=== PATIENT | male | born 2000 | race Caucasian/White ===

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

== ENCOUNTER → 2020-06-07 | Outpatient (CLI) | payer BC, SELFPAY ==
[2020-06-07 11:57] VITALS: BMI 27.0
== END | disposition home or self-care (01) ==
LOC: LABSPEC 15:19
PROVIDERS: PCP Pediatrics; Referring Provider Physician Assistant Surgical; Visit Provider Physician Assistant Surgical
DX: Z20.822 Contact with and (suspected) exposure to COVID-19 (principal)
CPT/HCPCS: 87635; U0003

== ENCOUNTER 2021-02-08 14:14 | Emergency (ER) | payer BC, SELFPAY ==
[2021-02-08 14:14] VITALS: BP 130/90; PULSE 71; RESP 16; TEMP 35.7; O2SAT 100; BMI 26.6
[2021-02-08 14:39] VITALS: BP 146/87; PULSE 70; RESP 14; O2SAT 98
--- NOTE | 2021-02-08 14:57 | EKG12_ITS ---
Test Reason : CP Blood Pressure : / mmHG Vent. Rate : 069 BPM Atrial Rate : 069 BPM P-R Int : 160 ms QRS Dur : 098 ms QT Int : 366 ms P-R-T Axes : 046 051 044 degrees QTc Int : 392 ms Normal sinus rhythm Normal ECG Confirmed by ALEIDA POPE, LETI ([id number]), associate editor LIU MASTERSON ([id number]) on 02/10/2021 1:17:02 PM Referred By: ALICIA/LUIGI Confirmed By:NANCIE SHIN MD
--- NOTE | 2021-02-08 14:58 | EDS_ITS ---
HPI History of Present Illness Chief Complaint: Chest Pain Informant: patient Onset/Context/Timing Onset: Yesterday Activity at onset: sudden Timing: Continuous Quality: Positive for Dull Location: Right Parasternal Worsened By: Exertion Relieved By: Rest and Remaining Still Associated Symptoms: Negative for Nausea, Vomiting, Diaphoresis, Dyspnea, Cough, Fever, Lightheadedness, Acid Reflux and Palpitations Narrative Narrative: Patient presents with chest pain that began yesterday evening. Patient states it has been constant. Patient describes the pain as dull. Patient states it is over the right parasternal area. Patient states it is worse with exertion and better when laying flat. Patient denies any nausea or vomiting. Patient denies any diaphoresis. Patient denies any cough, fever, or shortness of breath. Patient denies any palpitations. Patient denies any cardiac or PE risk factors. CVD Risk Factors: Negative for Hypertension, Diabetes, Hypercholesterolemia, Family History 1' </=55 and Smoking PE Risk Factors: Negative for Recent Travel/Surgery, Recent Immobilization, Prior DVT or PE, Cancer and OCP + Smoking + >/=35 PFSH PFSH Medical History (Updated 02/08/21 @ 18:[address] Mike Ferris DO) ACL tear Asthma Pyloric stenosis Pyloric stenosis Allergy/AdvReac Type Severity Reaction Status Date / Time omeprazole [From Prilosec] Allergy throat Verified 02/08/21 14:16 swells ENVIRONMENTAL Allergy Swelling Uncoded 02/08/21 14:16 Surgical History (Updated 02/08/21 @ 15:[address] Mike Ferris DO) History of cholecystectomy History of repair of pyloric stenosis History of tonsillectomy History of tonsillectomy Hx of tympanostomy tubes Social History Smoking Status: Never smoker ROS ROS ED Constitutional Constitutional ED: Denies chills or fever(s) Eyes Eyes: Denies blurry vision or change in vision ENT ENT ED: Denies rhinorrhea or sore throat Cardiovascular Cardiovascular: Reports chest pain; Denies palpitations Respiratory/Chest Respiratory/Chest: Reports dyspnea; Denies cough Gastrointestinal Gastrointestinal: Reports nausea; Denies abdominal pain or vomiting Genitourinary Genitourinary ED: Denies dysuria or hematuria Musculoskeletal Musculoskeletal: Denies back pain or neck pain Integumentary Denies abscess or rash Neurologic Neurologic: Denies headache(s) or weakness Allergic/Immunologic Allergic/Immunologic ED: Denies mouth swelling or urticaria EXAM Physical Exam Const Vital Signs: 02/08/21 14:14 02/08/21 14:39 02/08/21 15:05 Temperature 96.2 F L Temperature Source Temporal Pulse Rate 71 70 Respiratory Rate 16 14 Respiratory Effort Normal Blood Pressure 130/90 H 146/87 H Blood Pressure Mean 103 106 Pulse Ox 100 98 99 Oxygen Delivery Method Room Air Room Air Room Air 02/08/21 16:50 02/08/21 18:29 Temperature Temperature Source Pulse Rate 79 69 Respiratory Rate 19 H 19 H Respiratory Effort Blood Pressure 131/80 H 127/79 H Blood Pressure Mean 97 95 Pulse Ox 97 97 Oxygen Delivery Method Room Air Room Air Positive well nourished and well developed General Appearance ED: well developed HEENT normocephalic and atraumatic Eyes PERRL and EOMs intact bilaterally Neck supple and no JVD Chest Wall Chest: tenderness costal cartilage right Resp normal respiratory effort and clear to auscultation bilaterally Effort and Inspection: Negative for respiratory distress Cardio regular rate, regular rhythm and no murmurs GI normal to inspection, nondistended, normoactive bowel sounds, soft to palpation, non-tender and non-distended Extremity normal to inspection General Extremety ED: Negative for edema or tenderness General Extremity: Negative for edema Neuro oriented x3, CN's II-XII intact bilaterally and no sensory deficits noted Sensorium / Orientation: awake and alert Motor Exam: strength 5/5 throughout Psych mental status grossly normal Heart Score History: Slightly/Non-Suspicious ECG: Normal Age: </= 45 years Risk Factors: No Risk Factors Troponin: </= Normal Limit Score: 0 MDM MDM MDM Narrative Medical decision making narrative: EKG was obtained. On my interpretation, it showed a normal sinus rhythm with a rate of 69. FL interval, QRS interval, and QTc intervals were all normal. [place] was normal. There are no acute ST or T wave changes. Portable 1 view chest x-ray was obtained. On my interpretation, lung kent are clear. There is normal cardiac silhouette. Bony thorax is normal. There is no acute process noted. Radiologist also interpreted the x- ray and agrees. CBC and basic metabolic profile were obtained and were within normal limits. Initial high-sensitivity troponin was normal. D-dimer was elevated at 0.51. Because of this, CTA of the chest was ordered. There is no evidence of pulmonary embolism. 2-hour repeat high-sensitivity troponin was normal. Patient has a HEART score of 0. Patient was advised that this is low risk for acute cardiac event. Patient was instructed to follow-up with his primary care physician in 5 to 7 days. Patient was instructed to take Tylenol or ibuprofen as needed for pain. Patient and family understood and were agreeable with the plan. All questions were answered. Lab Data Attestation: I reviewed the patient's lab results. Labs: Laboratory Results - last 24 hr 02/08/21 02/08/21 02/08/21 15:20 15:20 15:20 WBC 7.4 RBC 4.70 Hgb 14.6 Hct 42.7 MCV 90.9 MCH 31.1 MCHC 34.2 RDW Std Deviation 41.7 RDW Coeff of Ezequiel 12.6 Plt Count 321 MPV 9.0 Immature Gran % (Auto) 0.100 Neut % (Auto) 56.5 Lymph % (Auto) 31.6 Woodward % (Auto) 7.7 Eos % (Auto) 3.6 Baso % (Auto) 0.5 Absolute Neuts (auto) 4.2 Absolute Lymphs (auto) 2.35 Nucleated RBC % 0 D-Dimer Quant (PE/DVT) 0.51 H* Sodium 139 Potassium 3.8 Chloride 104 Carbon Dioxide 31.0 Anion Gap 4 L BUN 11 Creatinine 0.96 Estim Creat Clear Calc 122.74 Est GFR (MDRD) Af Amer 127 Est GFR (MDRD) Non-Af 105 BUN/Creatinine Ratio 11.4 Glucose 102 Calcium 9.4 Troponin I High Sens 6 02/08/21 17:18 WBC RBC Hgb Hct MCV MCH MCHC RDW Std Deviation RDW Coeff of Ezequiel Plt Count MPV Immature Gran % (Auto) Neut % (Auto) Lymph % (Auto) Woodward % (Auto) Eos % (Auto) Baso % (Auto) Absolute Neuts (auto) Absolute Lymphs (auto) Nucleated RBC % D-Dimer Quant (PE/DVT) Sodium Potassium Chloride Carbon Dioxide Anion Gap BUN Creatinine Estim Creat Clear Calc Est GFR (MDRD) Af Amer Est GFR (MDRD) Non-Af BUN/Creatinine Ratio Glucose Calcium Troponin I High Sens 5 Radiography Chest X-Ray - ED: 1 View, Read by ED Physician, Read by Radiologist and Normal Diagnostic Testing: Radiology Impression Chest X-Ray 02/08/21 15:25 IMPRESSION: Normal x-ray examination of the chest. Electronically Signed: Bernard Azevedo MD at 15:43 EDT , Service support , Chest CTA 02/08/21 16:22 IMPRESSION: No central or segmental pulmonary embolism. Electronically Signed: Jeremy Davenport MD ([place]) at 16:42 EDT , Service support , EKG Initial EKG: Attestation: I personally reviewed and interpreted this EKG as follows: Interpretation: Sinus Rhythm (69) and No Acute Injury Pattern Prior EKG tracings: available for review Prior: Unchanged (05/09/2016) Discharge Plan Triage Chief Complaint: Chest Pain ED Provider: Mike Ferris Dx/Rx/DC Orders Clinical Impression: Chest pain of uncertain etiology Instructions: ED Chest Pain, Uncertain Cause Primary Care Provider: Care Physician,No Primary Referrals: Catalina Camacho MD [STAFF PHYSICIAN] - 5-7 Days Care Physician,No Primary [Primary Care Provider] - Disposition Disposition: Home, Self Care
[2021-02-08] MEDS: Aspirin 81 MG TAB.CHEW 324 MG PO (15:04)
[2021-02-08 15:05] VITALS: O2SAT 99
--- NOTE | 2021-02-08 15:25 | RAD_ITS ---
STUDY: X-RAY CHEST REASON FOR EXAM: Male, 20 years old. Chest pain TECHNIQUE: Single AP portable view of the chest. COMPARISON: None. FINDINGS: EKG electrodes are seen. The lungs are clear and expanded. There is no demonstrated pleural abnormality. Normal size heart. Normal mediastinum and joshua. Normal visualized pulmonary arteries. Normal visualized aortic arch and descending thoracic aorta. Normal visualized thoracic spine. Normal visualized ribs, clavicles, and shoulders. There is no demonstrated abnormality of the visualized soft tissue structures of the upper abdomen. RAD/Chest 1 View (Portable) IMPRESSION: Normal x-ray examination of the chest. Electronically Signed: Bernard Azevedo MD at 15:43 EDT , Service support ,
[2021-02-08 15:34] LABS: Absolute Lymphocyte Count 2.35 X10^3/uL (0.83-4.51); Absolute Neutrophil Count 4.2 X10^3/uL (2.0-7.7); Basophil# 0.04 X10^3/uL; Basophil% 0.5 % (0-1); Eosinophil# 0.27 X10^3/uL; Eosinophils% 3.6 % (0-5); Hematocrit 42.7 % (40-54); Hemoglobin 14.6 g/dL (13.0-16.5); Lymphocyte # 2.35 X10^3/ul (0.83-4.51); Lymphocyte % 31.6 % (19-41); Mean Corp Hgb Conc 34.2 g/dL (32-36); Mean Corpuscular Hgb 31.1 pg (27.0-32.0); Mean Corpuscular Volume 90.9 fL (80-94); Monocyte# 0.57 X10^3/uL; Monocyte% 7.7 % (0-10); NRBC Flagged by Analyzer 0 % (0-5); Neutrophil # 4.19 X10^3/uL (2.7-7.7); Neutrophil % 56.5 % (47-70); Platelet Count 321 K/mm3 (150-450); RBC Distribution Width CV 12.6 % (11.6-14.6); RBC Distribution Width SD 41.7 fl (35.1-43.9); White Blood Count 7.4 K/mm3 (4.4-11.0)
[2021-02-08 15:49] LABS: Anion Gap 4 (5-15); BUN 11 mg/dL (7-18); BUN/Creat Ratio 11.4 RATIO (10-20); Calcium,Total 9.4 mg/dL (8.5-10.1); Chloride 104 mmol/L (98-107); Creatinine, Serum 0.96 mg/dL (0.70-1.30); EST Glomerular Filtration Rate 105 mL/min (>60); Est Glom Filt Rate - Afr Amer 127 mL/min (>60); Estimated Creatinine Clearance 122.74 ml/min; Glucose 102 mg/dL (74-106); Potassium 3.8 mmol/L (3.5-5.1); Sodium Level 139 mmol/L (136-145); Troponin-I HS 6 pg/mL (3.0-78.0)
[2021-02-08 16:06] LABS: D-Dimer Quantitative (DVT/PE) 0.51 FEU/ug/m (0.27-0.49)
--- NOTE | 2021-02-08 16:22 | CT_ITS ---
STUDY: CTA CHEST REASON FOR EXAM: Male, 20 years old. Elevated D-dimer RADIATION DOSAGE (If Supplied By Facility): CTDIvol = ( 13.07 ) mGy, DLP = ( 457.70 ) mGycm TECHNIQUE: The examination was performed with the intravenous administration of IV 100mL Isovue-[id number]. Post-processing of the angiographic images was performed, with multiplanar reformation and 3D reconstruction. Individualized dose optimization techniques were used for this CT. COMPARISON: None. FINDINGS: Normal enhancement of the main pulmonary artery and right and left pulmonary arteries. Normal enhancement of the bilateral peripheral pulmonary arteries. There is no demonstrated pulmonary embolism. Normal thoracic aorta and visualized great vessels. There is no demonstrated aortic dissection. Normal heart and pericardium. Normal mediastinum. Normal hilar regions. Normal visualized trachea and bronchi. The lungs are well expanded. Normal pulmonary parenchyma. Normal pleura. Normal chest wall structures. Normal osseous structures. Small nodule in the left upper abdomen adjacent to the left kidney measuring 1.5 cm is stable. Attenuation matches that of spleen, probable splenule. CT/CTA Chest W/WO Contrast IMPRESSION: No central or segmental pulmonary embolism. Electronically Signed: Jeremy Davenport MD ([facility]) at 16:42 EDT , Service support ,
[2021-02-08 16:50] VITALS: BP 131/80; PULSE 79; RESP 19; O2SAT 97
[2021-02-08 17:45] LABS: Troponin-I HS 5 pg/mL (3.0-78.0)
[2021-02-08 18:29] VITALS: BP 127/79; PULSE 69; RESP 19; O2SAT 97
[2021-02-08 18:59] VITALS: BP 131/84; RESP 16; TEMP 36.6
== END 2021-02-08 18:59 | disposition home or self-care (01) ==
PROVIDERS: Emergency Provider Emergency Medicine
DX: R07.89 Other chest pain (principal); R06.00 Dyspnea, unspecified; R11.0 Nausea; R79.89 Other specified abnormal findings of blood chemistry; J45.909 Unspecified asthma, uncomplicated
CPT/HCPCS: 36415; 71045; 71275; 80048; 84484; 85025; 85379; 93005; 99285; Q9967; A4216